=== PATIENT | female | born 1970 | race Caucasian/White ===

== ENCOUNTER 2024-12-31 09:20 | Day surgery (SDC) | payer OTHER, BC ==
[2024-12-31] MEDS ORDERED: propofoL IV ONE ×7 (09:21→14:28)
[2024-12-31] MEDS ORDERED: NEURONTIN ONE (10:09)
[2024-12-31] MEDS ORDERED: Lactated Ringers 1,000 ML IV ONE (10:09)
[2024-12-31] MEDS ORDERED: celeBREX 100 MG ONE (10:09)
[2024-12-31] MEDS ORDERED: CEFAZOLIN SODIUM ONE (10:09)
[2024-12-31] MEDS ORDERED: Decadron 4 MG ONE (10:09)
[2024-12-31] MEDS: Decadron 4 MG PO ONE (10:11)
[2024-12-31] MEDS: TYLENOL EXTRA STRENGTH 500 MG PO ONE (10:11)
[2024-12-31] MEDS: NEURONTIN PO ONE (10:11)
[2024-12-31] MEDS: celeBREX 100 MG PO ONE (10:11)
[2024-12-31] MEDS: Lactated Ringers 1,000 ML IV SCH (10:12)
[2024-12-31] MEDS: Pepcid 20 MG VIAL IV ONE (10:12)
[2024-12-31] MEDS: Reglan 10 MG/2 ML IV ONE (10:12)
[2024-12-31] MEDS: Transderm Scop 1.5MG Patch TOP PRN (10:12)
[2024-12-31 10:48] LABS: Hematocrit 39.7 % (34.1-44.9); Hemoglobin 13.4 g/dL (11.2-15.7); Mean Corpuscular Hemoglobin 31.7 pg (25.6-32.2); Mean Corpuscular Hgb Concent. 33.8 g/dL (32.2-35.5); Platelet Count 224 x10^3/uL (182-369); Red Blood Count 4.23 x10^6/uL (3.93-5.22); White Blood Count 8.2 x10^3/uL (3.98-10.04)
[2024-12-31 11:00] LABS: Calcium 8.8 mg/dL (8.4-10.2); Carbon Dioxide 25.0 mmol/L (22-30); Creatinine 1 0.69 mg/dL (0.52-1.04); EST GLOMERULAR FILTRATION RATE 103.7 ML/MIN; Glucose 98.0 mg/dL (74-106); Potassium 4.0 mmol/L (3.5-5.1); SGOT/AST 22.0 U/L (14-36); SGPT/ALT 15.0 U/L (0-35); Total Protein 7.9 g/dL (6.3-8.2)
[2024-12-31] MEDS ORDERED: BRIDION 200MG/2ML IV ONE (12:01)
[2024-12-31] MEDS ORDERED: ROCURONIUM BROMIDE IV ONE (12:01)
[2024-12-31] MEDS ORDERED: Versed 2 MG/2 ML Injection ONE (12:01)
[2024-12-31] MEDS ORDERED: Zofran 4 MG/2 ML VIAL ONE (12:01)
[2024-12-31] MEDS ORDERED: TORAdol 30 mg Injection ONE (12:01)
[2024-12-31] MEDS ORDERED: SUBLIMAZE 100 MCG/2 ML ONE (12:01)
[2024-12-31] MEDS ORDERED: Xylocaine-Mpf 2% 5 Ml Vial ONE (12:01)
[2024-12-31] MEDS ORDERED: EXPAREL 133 MG/10 ML VIAL IJ ONE (12:04)
[2024-12-31] MEDS ORDERED: Marcaine Mpf 0.5% Vial 30 Ml ONE (12:04)
[2024-12-31] MEDS ORDERED: ALBUTEROL/Proair Hfa MDI IH ONE (14:30)
--- NOTE | 2024-12-31 14:57 | XRAY ---
Indication: Left foot 1/2/3 tarsometatarsal arthrodesis, gastrocnemius recession, and deep peroneal nerve decompression. Intraoperative fluoroscopy provided for 2 minute 31 seconds. 16 digital spot images submitted for interpretation ultimately demonstrates 1/2/3 tarsometatarsal arthrodesis with intact fixation plate/screws. Correlate with intraoperative findings/report.
[2024-12-31 15:44] VITALS: BP 144/76; RESP 16
[2024-12-31 16:13] VITALS: PULSE 58; TEMP 96.7; O2SAT 98
--- NOTE | 2024-12-31 17:11 | XRAY ---
Two minutes and 31 seconds of fluoroscopy was used insurgery for a left foot // tarsometatarsal arthrodesis, gastrocnemius recession, and deep peroneal nerve decompression.
--- NOTE | 2025-01-03 09:46 | OP ---
SURGERY DATE/TIME: 12/31/2024 [id number] PREOPERATIVE DIAGNOSES: 1) Left foot pain. 2) Multiple transverse tarsometatarsal joint fractures. 3) Left deep peroneal nerve compression injury. 4) Gastrocnemius equinus. POSTOPERATIVE DIAGNOSES: 1) Left foot pain. 2) Multiple transverse tarsometatarsal joint fractures. 3) Left deep peroneal nerve compression injury. 4) Gastrocnemius equinus. PROCEDURES: 1) Gastrocnemius recession, left calf. 2) Multiple transverse tarsometatarsal joint arthrodesis. 3) Deep peroneal nerve decompression. SURGEON: Nelson Dodd DPM MEDICAL AFFAIRS DIRECTOR: None. ANESTHESIA: General plus a preoperative popliteal and saphenous block. See Anesthesia report for details. HEMOSTASIS: Thigh tourniquet set to 320 mmHg for a total of 60 total tourniquet minutes. ESTIMATED BLOOD LOSS: Minimal. MATERIALS: Four-hole Mini Frag plate with a 4.0 x 36 cannulated, fully threaded screw for home run, a 3.4 x 28 and a 3.4 x 30 VPC screw for the second and third tarsometatarsal joints, 4-0 Monocryl, 3-0 nylon. INJECTABLES: See Anesthesia report for details. INDICATIONS: The patient is a very pleasant 54-year-old female who presented to my service after a fall that resulted in a significant amount of pain to the left foot. She was seen by an urgent care provider who stated that there was likely a break which resulted in consult with our service. From that standpoint, she did see us with a positive piano castro test as well as positive forefoot abduction relative to her midfoot indicating possibility of a Lisfranc's fracture dislocation. An MRI was obtained demonstrating some significant bone bruising as well as intra-articular fracture of the first and second tarsometatarsal joints with significant bone bruising to the third tarsometatarsal joint. From that standpoint, patient was discussed the options given that there were intra-articular fractures and what the typical course of action would be. Patient was given options as far as conservative and surgical options. Given the level of pain and the nonresponsiveness to the conservative therapy, patient opted to proceed with surgical intervention knowing the risks and complications and benefits. All risks, complications, and benefits including, but not limited to, infection, hematoma, seroma, possibility of delayed wound healing, non-wound healing, possible failure of hardware and possible failure of surgical outcome were discussed. In particular, patient was concerned regarding postoperative pain and range of motion, and these concerns were addressed in the consultation process. From that standpoint, she has also expressed that she does have some pain to the deep peroneal nerve, which has been ongoing throughout the process with a positive Tinel's for which if we saw a compression injury, we would decompress that. Another positive finding was with plantar flexion of the hallux, patient's pain was elicited the longer it was held. From that standpoint, we have decided to add deep peroneal nerve decompression to the consent. From that standpoint, patient had plenty of time to ask questions, which were answered to her apparent satisfaction. It is at this time we decided to proceed. DESCRIPTION OF PROCEDURE AND FINDINGS: Patient was brought into the PACU prior to the procedure and provided a popliteal and saphenous block. See Anesthesia report for details. Patient was then brought into the operating theater and placed on the operating room table in the supine position. At this time, general anesthesia was administered and a well-padded thigh tourniquet was applied to the patient's left thigh. This was set to 320 mmHg. Following this, the left foot was prepped and draped in the typical sterile fashion and lowered onto the surgical field. At this time, attention was directed to the leg where a Silfverskiold test was performed demonstrating a significant plantar flexion with the foot held with the knee extended and loaded, and then when the knee was bent, there was a significant improvement to approximately 20 degrees of dorsiflexion relative to the longitudinal axis of the leg. From that standpoint, it was decided to proceed with the gastrocnemius recession as anticipated. We made a linear incision at the palpable dell at the posteromedial border of the calf, approximately 3 cm in length. At this time, this was dissected bluntly utilizing my finger down to the level of the crural fascia. The crural fascia was then incised utilizing a 15 blade, exposing the gastrocnemius aponeurosis. This was then blunt dissected once again, and then a pediatric speculum was utilized to get across through to the lateral side and have direct visualization. The sural nerve was directly visualized as a 10 blade was utilized to incise the gastrocnemius aponeurosis; however, not cutting into the muscle belly and protecting the sural nerve the whole time. Following this, the speculum was then removed. Copious amounts of sterile saline were utilized to flush the surgical site. A 2-0 Vicryl was then utilized to coapt the subcutaneous skin edges, and a 3-0 nylon was utilized in a horizontal mattress-type fashion to coapt the skin edges in an everted-type fashion. Following this, attention was directed to the forefoot where under fluoroscopic guidance, the tarsometatarsal joint lines were identified and marked out. Linear incision was made over the first tarsometatarsal joint, exposing the tarsometatarsal joint. At this time, inspection of the metatarsal base demonstrated an intra-articular fracture at the plantar aspect of the metatarsal base once the capsule was released. From that standpoint, decision was made to proceed with the first tarsometatarsal joint arthrodesis where the cartilage was then resected utilizing a 31 mm sagittal saw. This was cleansed utilizing sterile saline to remove any remaining cartilage, and then a 2 mm drill was utilized to fenestrate, and then an osteotome was utilized to fish scale the surface for greater surface area for vascular ingrowth as well as surface area for the fusion. At this time, a 4.0 x 36 fully threaded screw was then introduced in a lag technique to gain excellent compression through the first tarsometatarsal joint with good apposition of the bone. To protect this screw, a 4-hole plate was then introduced to the dorsomedial aspect of the first tarsometatarsal joint. From that standpoint, the linear incision was made between the bases of the second and third tarsometatarsal joint where this was quickly protected, the deep peroneal nerve and the dorsalis pedis. From that standpoint, this was retracted medially throughout the remainder of the procedure, and then the joints were then prepped in a very similar fashion to the first tarsometatarsal joint to the second and third. Once this was achieved, K-wire was utilized to hold the compression with lag by compromise, and then a 3.4 x 30 VPC and a 3.4 x 28 VPC was introduced to the second and third tarsometatarsal joints, gaining excellent compression through these sites. These sites were assessed. Once again, the Whiting was not able to be passed between any of the fusion sites, gaining excellent compression. From that standpoint, copious amounts of sterile saline were utilized to flush the surgical site over the second and third tarsometatarsal joints. From the medial aspect, utilizing the length of the incision, the deep peroneal was identified and decompressed along its route. It is also noted that we did find the extensor hallucis brevis tendon, which crossed over the path of the deep peroneal nerve, which was then released approximately 1 cm to prevent adhesion of the tendon once again and compression injury over the deep peroneal nerve. From that standpoint, copious amounts of sterile saline were utilized to flush this surgical site. A 4-0 Monocryl was utilized to coapt the subcutaneous skin edges in a simple buried interrupted-type fashion, and then 3-0 nylon was utilized in a horizontal mattress-type fashion to coapt the skin edges in an everted-type fashion. A dressing consisting of Betadine, Adaptic, 4 x 4, Kerlix, ABD and a well-padded posterior splint was applied to the patient's left lower extremity with the foot orthogonal relative to longitudinal axis of the leg. Patient was then reversed from anesthesia and returned to the postoperative anesthesia care unit with vital signs stable and vascular status intact. Patient handled the anesthesia as well as the procedure without significant complication. Postoperative orders as indicated in the patient's discharge chart.
== END 2024-12-31 16:16 | disposition home or self-care (01) ==
LOC: SDC 09:20
PROVIDERS: ATTEND Podiatrist Foot & Ankle Surgery
DX: S92.212A Displaced fracture of cuboid bone of left foot, initial encounter for closed fracture (principal); M79.672 Pain in left foot; M62.462 Contracture of muscle, left lower leg; S84.12XA Injury of peroneal nerve at lower leg level, left leg, initial encounter
CPT/HCPCS: 27687; 28730; 36415; 64708; 73630; 76000; 80053; 85027; 93005; C1713